=== PATIENT | male | born 1995 | race Caucasian/White ===

== ENCOUNTER 2020-11-15 00:19 | Emergency (ER) | payer SELFPAY ==
[~2020-11-15] VITALS: Ht 167.6 cm; Wt 68.0 kg
[2020-11-15] MEDS ORDERED: KETOROLAC 60MG/2ML VIAL IM STA (02:54)
[2020-11-15] MEDS ORDERED: HYDROCODONE/ACETAMINOPHEN 5/325MG TABLET PO STA (02:54)
[2020-11-15] MEDS ORDERED: HYDROCODONE/ACETAMINOPHEN 5/325MG TABLET PO SCH (05:20)
[2020-11-15] MEDS ORDERED: T3 PO (05:24)
[2020-11-15] MEDS ORDERED: IBUP-2029 PO (05:24)
[2020-11-15 05:30] VITALS: BP 132/64
== END 2020-11-15 05:45 | disposition home or self-care (01) ==
LOC: ER 00:19
DX: S20.212A Contusion of left front wall of thorax, initial encounter (principal); F10.10 Alcohol abuse, uncomplicated; Y90.9 Presence of alcohol in blood, level not specified; V43.52XA Car driver injured in collision with other type car in traffic accident, initial encounter; Y93.89 Activity, other specified; Y92.488 Other paved roadways as the place of occurrence of the external cause
CPT/HCPCS: 71101; 93005; 96372; 99283; J1885

== ENCOUNTER 2022-12-23 22:11 | Emergency (ER) | payer SELFPAY ==
[~2022-12-23] VITALS: Ht 172.7 cm; Wt 66.0 kg
[~2022-12-23 22:11] MED LIST: IBUP-2029 PO; T3 PO
[2022-12-23 22:21] VITALS: BP 117/87; PULSE 95; RESP 16; TEMP 99.6; O2SAT 97
== END 2022-12-24 00:09 | disposition left against medical advice (07) ==
LOC: ER 22:36
DX: Z53.21 Procedure and treatment not carried out due to patient leaving prior to being seen by health care provider (principal)
CPT/HCPCS: 99281